=== PATIENT | male | born 1975 ===

== ENCOUNTER 2017-01-23 20:17 | Emergency (ER) | payer SELFPAY ==
--- NOTE | 2017-01-23 20:28 | PDOC ---
Rapid Medical Evaluation Chief Complaint: Alcohol intoxication Time Seen by Provider: 01/23/17 20:27 Medical Evaluation: Allergies Allergy/AdvReac Type Severity Reaction Status Date / Time No Known Allergies Allergy Verified 01/23/17 20:27 01/23/17 20:27 I have performed a brief in-person evaluation of this patient. The patient presents with a chief complaint of: biba req for detox Pertinent physical exam findings:VSS L/S CTAB RRR I have ordered the followin The patient will proceed to the ED for further evaluation:
[2017-01-23 20:30] VITALS: TEMP 98.1; BMI 38.4
--- NOTE | 2017-01-23 21:00 | PDOC ---
History of Present Illness - General Chief Complaint: Alcohol intoxication Stated Complaint: INTOXICATION Time Seen by Provider: 01/23/17 20:27 - History of Present Illness Initial Comments: 41 year old homeless male with history of EtOH abuse, diabetes, and HTN presenting acutely intoxicated but pleasant and not agitated for detox needs. Denies any other symptoms such as fevers, chills, nausea, vomiting, diarrhea, constipation, falls, chest pain, sob, or other symptoms. His last drink was one hour prior to presentation. He admits to having 8 25 ounce beers/ four lokos today. He has had withdrawal symptoms in the past but currently is not experiencing any. 01/23/17 20:56 Past History - Past Medical History Allergies/Adverse Reactions: Allergies Allergy/AdvReac Type Severity Reaction Status Date / Time No Known Allergies Allergy Verified 01/23/17 20:27 Home Medications: Ambulatory Orders NK [No Known Home Medication] 01/23/17 COPD: No Diabetes: Yes (no meds in a long time) Other medical history: hep C - Suicide/Smoking/Psychosocial Hx Smoking History: Current some day smoker Information on smoking cessation initiated: No Review of Systems - Review of Systems Constitutional: No: Chills, Diaphoresis, Fever HEENTM: No: Blurred Vision Respiratory: No: Cough, Shortness of Breath, Wheezing Cardiac (ROS): No: Palpitations, Syncope, Chest Tightness ABD/GI: No: Constipated, Diarrhea, Nausea, Vomiting : No: Dysuria, Discharge, Pain Musculoskeletal: No: Back Pain Integumentary: No: Lesions, Lumps Neurological: No: Headache Psychiatric: Yes: Depression *Physical Exam - Vital Signs Last Vital Signs Temp Pulse Resp BP Pulse Ox 98.1 F 126 H 18 151/75 98 01/23/17 20:27 01/23/17 20:27 01/23/17 20:27 01/23/17 20:27 01/23/17 20:27 - Physical Exam General Appearance: Yes: Nourished, Disheveled, Other (Malodorous). No: Apparent Distress HEENT: positive: EOMI, ANSELMO, Normal Voice. negative: Normal ENT Inspection ( Malodorous breath and smells of beer) Neck: positive: Trachea midline. negative: Tender Respiratory/Chest: positive: Lungs Clear, Normal Breath Sounds. negative: Chest Tender, Respiratory Distress Cardiovascular: positive: Regular Rhythm, Tachycardia (Slightly tachycardic) Gastrointestinal/Abdominal: positive: Normal Bowel Sounds, Flat, Soft. negative : Tender Musculoskeletal: positive: Normal Inspection Integumentary: positive: Normal Color, Dry, Warm Neurologic: positive: Fully Oriented, Alert, Normal Mood/Affect, Other ( Actively intoxicated but overall stable gait) ED Treatment Course - LABORATORY CBC & Chemistry Diagram: 01/23/17 22:50 Medical Decision Making - Medical Decision Making 41 year old actively intoxicated male. No active signs of withdrawal but slightlyl tachy to 110s. Will give one liter, measuring etoh level, cmp, then send to detox if he remains stable. 01/23/17 21:48 HR remeasured at 90s after 2 L water PO. CMP demonstrating transaminitis likely secondary to EtOH abuse but denies abdominal pain, nausea, vomiting, or diarrhea. EtOH level 200. Will send to detox. 01/24/17 03:11 *DC/Admit/Observation/Transfer Diagnosis at time of Disposition: Alcohol abuse - Discharge Dispostion Disposition: HOME Condition at time of disposition: Improved Admit: No - Referrals - Patient Instructions Printed Discharge Instructions: DI for Alcohol Abuse Additional Instructions: Your liver enzymes were a little bit high because of your alcohol abuse. Please refrain from using alcohol and stick with your detox program. - Post Discharge Activity
[2017-01-23] MEDS ORDERED: HEMOQUE TEST 1 EACH EACH ONE (21:46)
[2017-01-23] MEDS: SODIUM CHLORIDE 0.9% 1000 ML INFUS.BAG IV ONE ×2 (22:25→23:40)
[2017-01-23 23:32] LABS: ALBUMIN 2.7 g/dl (3.4-5.0); ALK PHOS 176 U/L (45-117); ANION GAP 10 (8-16); BILIRUBIN,TOTAL 0.9 mg/dL (0.2-1.0); CALCIUM 7.6 mg/dL (8.5-10.1); CO2 26 mmol/L (21-32); CREATININE 0.5 mg/dL (0.7-1.3); GLUCOSE,RANDOM 152 mg/dL (74-106); SGPT/ALT 126 U/L (12-78); TOT PROT 7.3 g/dl (6.4-8.2)
[2017-01-23 23:40] LABS: SGOT/AST 161 U/L (15-37)
[2017-01-24 01:16] VITALS: BP 142/68
--- NOTE | 2017-01-24 01:25 | PDOC ---
Attending Attestation - Resident Resident Name: Kenn Khalil - ED Attending Attestation I have performed the following: I have examined & evaluated the patient, The case was reviewed & discussed with the resident, I agree w/resident's findings & plan - HPI HPI: 01/24/17 01:23 Pt comes with alcohol intox. He is requesting detox. - Physicial Exam PE: 01/24/17 01:24 Agree with resident exam. - Medical Decision Making 01/24/17 01:24 Pt has an alcohol level of 200. He was tachycardic on arrival, and presumably dehydrated so we hydrated him with 1L NSS> Labs show elevated LFTs secondary to alcohol. No old labs for comparison. Pt will be sent to detox.
[2017-01-24 01:30] VITALS: PULSE 98
== END 2017-01-24 01:30 | disposition home or self-care (01) ==
LOC: JER 20:17
DX: F10.10 Alcohol abuse, uncomplicated (principal); I10 Essential (primary) hypertension; E11.9 Type 2 diabetes mellitus without complications; Z59.0 Homelessness
CPT/HCPCS: 36415; 80053; 80307; 99283-25

== ENCOUNTER 2017-01-24 02:08 | Inpatient (IN) | payer OTHER ==
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
[2017-01-24 04:29] VITALS: BMI 38.4
[2017-01-24] MEDS ORDERED: MAGNESIUM CITRATE 300 ML BOTTLE PO PRN (04:30)
[2017-01-24] MEDS ORDERED: NICOTINE POLACRILEX 2 MG GUM BC PRN (04:30)
[2017-01-24] MEDS ORDERED: guaiFENesin/D-METHORPHAN HB 10 ML UNIT-DOSE CUPS PO PRN (04:30)
[2017-01-24] MEDS ORDERED: P-EPHED 60MG/TRIPROLIDI 2.5MG TABLET PO PRN (04:30)
[2017-01-24] MEDS ORDERED: MAGNESIUM HYDROX 2400MG/30ML ORAL SUSPENSION 30 ML CUP PO PRN (04:30)
[2017-01-24] MEDS ORDERED: hydrOXYzine PAMOATE 50 MG CAPSULE (FP) PO PRN (04:30)
[2017-01-24] MEDS ORDERED: IBUPROFEN 400 MG TABLET (FP) PO PRN (04:30)
[2017-01-24] MEDS ORDERED: ACETAMINOPHEN 325 MG TABLET (FP) PO PRN (04:30)
[2017-01-24] MEDS ORDERED: chlordiazePOXIDE HCL 25 MG CAPSULE PO ONE (04:30)
[2017-01-24] MEDS ORDERED: MAG HYDROX/AL HYDROX/SIMETH 30 ML UNIT-DOSE CUP PO PRN (04:30)
[2017-01-24] MEDS ORDERED: MENTHOL/PHENOL 1 EACH UD MM PRN (04:30)
[2017-01-24] MEDS ORDERED: LOPERAMIDE HCL 2 MG CAPSULE PO PRN (04:30)
[2017-01-24] MEDS: chlordiazePOXIDE HCL 25 MG CAPSULE PO SCH ×4 (05:27→22:20)
[2017-01-24 09:57] LABS: MCH 31.2 pg (25.7-33.7); MEAN PLT VOLUME 8.6 fl (7.5-11.1); PLATELET COUNT 188 K/MM3 (134-434); RDW 14.9 % (11.9-15.9)
[2017-01-24] MEDS: PRENATAL VITAMINS W/ FOLIC ACID TABLET (FP) PO SCH (10:17)
[2017-01-24] MEDS: NICOTINE 14 MG/24 HOURS TOPICAL PATCH TD SCH (10:17)
[2017-01-24 10:29] LABS: ALBUMIN 2.8 g/dl (3.4-5.0); ANION GAP 11 (8-16); CALCIUM 7.7 mg/dL (8.5-10.1); CO2 25 mmol/L (21-32); CREATININE 0.5 mg/dL (0.7-1.3); GLUCOSE,RANDOM 148 mg/dL (74-106); SGOT/AST 169 U/L (15-37); SGPT/ALT 129 U/L (12-78)
[2017-01-24 10:31] LABS: ALK PHOS 159 U/L (45-117); BILIRUBIN,TOTAL 1.5 mg/dL (0.2-1.0); TOT PROT 7.4 g/dl (6.4-8.2)
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
[2017-01-24] MEDS ORDERED: PNEUMOC 13-VAL CONJ-DIP CRM/PF 0.5 ML DISP.SYRIN IM ONE (12:00)
[2017-01-24] MEDS ORDERED: FLU VACCINE QUAD 60 MCG/0.5 ML (MDV 17-18) IM ONE (12:00)
[2017-01-24] MEDS ORDERED: PNEUMOCOCCAL 23 VACCINE 0.5 ML VIAL IM ONE (12:00)
--- NOTE | 2017-01-24 14:05 | PN ---
[facility] CIWA - CIWA Score Nausea/Vomitin-No Nausea/No Vomiting Muscle Tremors: 3 Anxiety: 4-Mod. Anxious/Guarded Agitation: 2 Paroxysmal Sweats: 3 Orientation: 2-Disoriented Date<2 days Tacttile Disturbances: 2-Mild Itch/Numbness/Burn Auditory Disturbances: 2-Mild Harshness/Frighten Visual Disturbances: 1-Very Mild Sensitivity Headache: 0-None Present CIWA-Ar Total Score: 19 [facility] Progress Note (SOAP) Subjective: Sweating, Chills, Interrupted Sleep, Body Aches, Constipation, Stomach Cramping. Objective: PT. A & O X 2 (UNCERTAIN ABOUT DAY / DATE). PT. OBSERVED AMBULATING ON UNIT. NO ACUTE DISTRESS. 01/24/17 14:01 Vital Signs Temperature 96.8 F L 01/24/17 10:00 Pulse Rate 106 H 01/24/17 10:00 Respiratory Rate 20 01/24/17 10:00 Blood Pressure 132/82 01/24/17 10:00 O2 Sat by Pulse Oximetry (%) Laboratory Tests 01/24/17 01/24/17 01/24/17 05:26 07:45 07:45 WBC 8.0 RBC 4.00 Hgb 12.5 Hct 36.8 MCV 92.0 MCH 31.2 MCHC 34.0 RDW 14.9 Plt Count 188 MPV 8.6 Manual Slide Review No Result Required. Sodium 135 L Potassium 3.5 Chloride 99 Carbon Dioxide 25 Anion Gap 11 BUN 3 L Creatinine 0.5 L Creat Clearance w eGFR > 60 POC Glucometer 163 Random Glucose 148 H Calcium 7.7 L Total Bilirubin 1.5 H D AST 169 H ALT 129 H Alkaline Phosphatase 159 H Total Protein 7.4 Albumin 2.8 L RPR Titer 01/24/17 07:45 WBC RBC Hgb Hct MCV MCH MCHC RDW Plt Count MPV Manual Slide Review Sodium Potassium Chloride Carbon Dioxide Anion Gap BUN Creatinine Creat Clearance w eGFR POC Glucometer Random Glucose Calcium Total Bilirubin AST ALT Alkaline Phosphatase Total Protein Albumin RPR Titer Nonreactive LABS NOTED. UA RESULTS PENDING. 01/24/17 14:05 Assessment: 01/24/17 14:03 WITHDRAWAL SYMPTOMS. Plan: CONTINUE DETOX. PRN FLEXERIL FOR BODY ACHES / MUSCL SPASMS. PRN CLONIDINE, 0.1 MG PO FOR DETOX SYMPTOMS / ELEVATED BP. INCREASE DAILY PO FLUID INTAKE. REPEAT CMP ON 01/26/2017 FOR ABNORMAL ADMISSION RENAL LAB VALUES AND ABNORMAL HEPATIC LAB VALUES.
[2017-01-24] MEDS ORDERED: cloNIDine HCL 0.1 MG TABLET PO PRN (14:09)
[2017-01-24 20:03] LABS: URINE APPEARANCE CLEAR; URINE BILIRUBIN NEGATIVE (NEGATIVE); URINE BLOOD NEGATIVE (NEGATIVE); URINE COLOR YELLOW; URINE GLUCOSE (UA) NEGATIVE (NEGATIVE); URINE KETONE NEGATIVE (NEGATIVE); URINE NITRITE NEGATIVE (NEGATIVE); URINE PROTEIN NEGATIVE (NEGATIVE); URINE UROBILINOGEN 4.0 E.U/dl mg/dL (0.2-1.0)
[2017-01-24 21:39] LABS: URINE LEUK ESTERASE Negative (NEGATIVE)
[2017-01-24] MEDS: THIAMINE HCL 100 MG TABLET (FP) PO SCH (22:20)
[2017-01-25] MEDS: CYCLOBENZAPRINE HCL 10 MG TABLET (FP) PO PRN (05:28)
[2017-01-25] MEDS: chlordiazePOXIDE HCL 25 MG CAPSULE PO SCH ×4 (05:28→22:10)
[2017-01-25] MEDS: PRENATAL VITAMINS W/ FOLIC ACID TABLET (FP) PO SCH (10:11)
[2017-01-25] MEDS: NICOTINE 14 MG/24 HOURS TOPICAL PATCH TD SCH (10:11)
[2017-01-25] MEDS ORDERED: hydrOXYzine PAMOATE 50 MG CAPSULE (FP) PO PRN (12:33)
--- NOTE | 2017-01-25 14:15 | PN ---
[facility] CIWA - CIWA Score Nausea/Vomitin Muscle Tremors: 5 Anxiety: 3 Agitation: 3 Paroxysmal Sweats: 3 Orientation: 0-Oriented Tacttile Disturbances: 1-Very Mild Itch/Numbness Auditory Disturbances: 0-None Visual Disturbances: 0-None Headache: 1-Very Mild CIWA-Ar Total Score: 18 [facility] Progress Note (SOAP) Subjective: Tremor, stomach ache, diarrhea, interrupted sleep, anxious Objective: 01/25/17 14:13 Last Vital Signs Temp Pulse Resp BP Pulse Ox 96.4 F L 115 H 20 120/85 01/25/17 14:01 01/25/17 14:01 01/25/17 14:01 01/25/17 14:01 Laboratory Tests 01/24/17 01/24/17 01/24/17 05:26 07:45 07:45 WBC 8.0 RBC 4.00 Hgb 12.5 Hct 36.8 MCV 92.0 MCH 31.2 MCHC 34.0 RDW 14.9 Plt Count 188 MPV 8.6 Manual Slide Review No Result Required. Sodium 135 L Potassium 3.5 Chloride 99 Carbon Dioxide 25 Anion Gap 11 BUN 3 L Creatinine 0.5 L Creat Clearance w eGFR > 60 POC Glucometer 163 Random Glucose 148 H Calcium 7.7 L Total Bilirubin 1.5 H D AST 169 H ALT 129 H Alkaline Phosphatase 159 H Total Protein 7.4 Albumin 2.8 L Urine Color Urine Appearance Urine pH Ur Specific [place] Urine Protein Urine Glucose (UA) Urine Ketones Urine Blood Urine Nitrite Urine Bilirubin Urine Urobilinogen Ur Leukocyte Esterase RPR Titer 01/24/17 01/24/17 01/25/17 07:45 08:30 05:34 WBC RBC Hgb Hct MCV MCH MCHC RDW Plt Count MPV Manual Slide Review Sodium Potassium Chloride Carbon Dioxide Anion Gap BUN Creatinine Creat Clearance w eGFR POC Glucometer 130 Random Glucose Calcium Total Bilirubin AST ALT Alkaline Phosphatase Total Protein Albumin Urine Color Yellow Urine Appearance Clear Urine pH 8.0 Ur Specific [place] 1.011 Urine Protein Negative Urine Glucose (UA) Negative Urine Ketones Negative Urine Blood Negative Urine Nitrite Negative Urine Bilirubin Negative Urine Urobilinogen 4.0 e.u/dl Ur Leukocyte Esterase Negative RPR Titer Nonreactive Labs noted: Ca 7.7 Assessment: 01/25/17 14:13 Withdrawal symptoms Noted with hypocalcemia Plan: Continue detox Vistaril 50mg PO q6hr prn for anxiety Hypocalcemia: start Os-anai 500mg PO BID, CMP already ordered for 01/26/17 ( follow up on result)
[2017-01-25] MEDS: CALCIUM (OYSTER SHELL) 500 MG TABLET (FP) PO SCH ×2 (14:37→22:11)
[2017-01-25] MEDS: chlordiazePOXIDE HCL 25 MG CAPSULE PO PRN (14:38)
[2017-01-25] MEDS: ZOLPIDEM TARTRATE 5 MG TABLET PO PRN (22:10)
[2017-01-25] MEDS: THIAMINE HCL 100 MG TABLET (FP) PO SCH (22:10)
[2017-01-26] MEDS: chlordiazePOXIDE 5 MG CAPSULE PO SCH ×4 (05:55→22:15)
[2017-01-26] MEDS: PRENATAL VITAMINS W/ FOLIC ACID TABLET (FP) PO SCH (10:04)
[2017-01-26] MEDS: CALCIUM (OYSTER SHELL) 500 MG TABLET (FP) PO SCH ×2 (10:04→22:14)
[2017-01-26] MEDS: NICOTINE 14 MG/24 HOURS TOPICAL PATCH TD SCH (10:05)
[2017-01-26 10:19] LABS: ALBUMIN 2.6 g/dl (3.4-5.0); ALK PHOS 209 U/L (45-117); ANION GAP 7 (8-16); BILIRUBIN,TOTAL 0.8 mg/dL (0.2-1.0); CO2 26 mmol/L (21-32); CREATININE 0.6 mg/dL (0.7-1.3); GLUCOSE,RANDOM 160 mg/dL (74-106); SGOT/AST 136 U/L (15-37); SGPT/ALT 106 U/L (12-78)
--- NOTE | 2017-01-26 10:56 | PN ---
[facility] Progress Note (SOAP) Subjective: Diarrhea, Stomach Cramping, Sweating, Body Aches, Tremors. Objective: PT. A & O X 3, OBSERVED AMBULATING ON UNIT. NO ACUTE DISTRESS. 01/26/17 10:54 Vital Signs Temperature 95.8 F L 01/26/17 09:06 Pulse Rate 92 H 01/26/17 09:06 Respiratory Rate 18 01/26/17 09:06 Blood Pressure 138/87 01/26/17 09:06 O2 Sat by Pulse Oximetry (%) Laboratory Tests 01/24/17 01/24/17 01/24/17 05:26 07:45 07:45 WBC 8.0 RBC 4.00 Hgb 12.5 Hct 36.8 MCV 92.0 MCH 31.2 MCHC 34.0 RDW 14.9 Plt Count 188 MPV 8.6 Manual Slide Review No Result Required. Sodium 135 L Potassium 3.5 Chloride 99 Carbon Dioxide 25 Anion Gap 11 BUN 3 L Creatinine 0.5 L Creat Clearance w eGFR > 60 POC Glucometer 163 Random Glucose 148 H Calcium 7.7 L Total Bilirubin 1.5 H D AST 169 H ALT 129 H Alkaline Phosphatase 159 H Total Protein 7.4 Albumin 2.8 L Urine Color Urine Appearance Urine pH Ur Specific [place] Urine Protein Urine Glucose (UA) Urine Ketones Urine Blood Urine Nitrite Urine Bilirubin Urine Urobilinogen Ur Leukocyte Esterase RPR Titer 01/24/17 01/24/17 01/25/17 07:45 08:30 05:34 WBC RBC Hgb Hct MCV MCH MCHC RDW Plt Count MPV Manual Slide Review Sodium Potassium Chloride Carbon Dioxide Anion Gap BUN Creatinine Creat Clearance w eGFR POC Glucometer 130 Random Glucose Calcium Total Bilirubin AST ALT Alkaline Phosphatase Total Protein Albumin Urine Color Yellow Urine Appearance Clear Urine pH 8.0 Ur Specific [place] 1.011 Urine Protein Negative Urine Glucose (UA) Negative Urine Ketones Negative Urine Blood Negative Urine Nitrite Negative Urine Bilirubin Negative Urine Urobilinogen 4.0 e.u/dl Ur Leukocyte Esterase Negative RPR Titer Nonreactive 01/26/17 01/26/17 05:58 07:00 WBC RBC Hgb Hct MCV MCH MCHC RDW Plt Count MPV Manual Slide Review Sodium 137 Potassium 3.7 Chloride 104 Carbon Dioxide 26 Anion Gap 7 L BUN 8 D Creatinine 0.6 L Creat Clearance w eGFR > 60 POC Glucometer 137 Random Glucose 160 H Calcium 8.0 L Total Bilirubin 0.8 D AST 136 H ALT 106 H Alkaline Phosphatase 209 H D Total Protein 7.0 Albumin 2.6 L Urine Color Urine Appearance Urine pH Ur Specific [place] Urine Protein Urine Glucose (UA) Urine Ketones Urine Blood Urine Nitrite Urine Bilirubin Urine Urobilinogen Ur Leukocyte Esterase RPR Titer LABS NOTED. RESULTS OF REPEAT CMP NOTED. 01/26/17 10:56 Assessment: 01/26/17 10:54 WITHDRAWAL SYMPTOMS. Plan: CONTINUE DETOX. INCREASE DAILY PO FLUID INTAKE. ENCOURAGE AMBULATION.
[2017-01-26] MEDS: chlordiazePOXIDE HCL 25 MG CAPSULE PO PRN (15:31)
[2017-01-26] MEDS: THIAMINE HCL 100 MG TABLET (FP) PO SCH (22:14)
[2017-01-26] MEDS: ZOLPIDEM TARTRATE 5 MG TABLET PO PRN (22:14)
--- NOTE | 2017-01-27 01:03 | EKG ---
Test Reason : Blood Pressure : / mmHG Vent. Rate : 105 BPM Atrial Rate : 105 BPM P-R Int : 132 ms QRS Dur : 092 ms QT Int : 378 ms P-R-T Axes : 054 061 050 degrees QTc Int : 499 ms SINUS TACHYCARDIA OTHERWISE NORMAL ECG WHEN COMPARED WITH ECG OF 24-JAN-2017 07:28, NO SIGNIFICANT CHANGE WAS FOUND Confirmed by DARVIN KULKARNI MD ([id number]) on 01/27/2017 1:03:30 AM Referred By: Confirmed By:DARVIN KULKARNI MD
--- NOTE | 2017-01-27 01:03 | EKG ---
Test Reason : Blood Pressure : / mmHG Vent. Rate : 097 BPM Atrial Rate : 097 BPM P-R Int : 130 ms QRS Dur : 090 ms QT Int : 380 ms P-R-T Axes : 052 048 043 degrees QTc Int : 482 ms NORMAL SINUS RHYTHM PROLONGED QT ABNORMAL ECG NO PREVIOUS ECGS AVAILABLE Confirmed by DARVIN KULKARNI MD ([id number]) on 01/27/2017 1:03:37 AM Referred By: Confirmed By:DARVIN KULKARNI MD
[2017-01-27] MEDS: chlordiazePOXIDE HCL 10 MG CAPSULE PO SCH ×4 (05:52→22:04)
[2017-01-27] MEDS: NICOTINE 14 MG/24 HOURS TOPICAL PATCH TD SCH (10:18)
[2017-01-27] MEDS: PRENATAL VITAMINS W/ FOLIC ACID TABLET (FP) PO SCH (10:18)
[2017-01-27] MEDS: CALCIUM (OYSTER SHELL) 500 MG TABLET (FP) PO SCH ×2 (10:19→22:04)
--- NOTE | 2017-01-27 11:19 | PN ---
S Progress Note (SOAP) Subjective: Tremors, Anxious, Fatigue, Sweating, Diarrhea, Body Aches. Objective: PT. A & O X 2 (UNCERTAIN ABOUT DAY / DATE). NO ACUTE DISTRESS. 01/27/17 11:15 Vital Signs Temperature 97.2 F L 01/27/17 09:14 Pulse Rate 86 01/27/17 09:14 Respiratory Rate 18 01/27/17 09:14 Blood Pressure 149/83 01/27/17 09:14 O2 Sat by Pulse Oximetry (%) Laboratory Tests 01/24/17 01/24/17 01/24/17 05:26 07:45 07:45 WBC 8.0 RBC 4.00 Hgb 12.5 Hct 36.8 MCV 92.0 MCH 31.2 MCHC 34.0 RDW 14.9 Plt Count 188 MPV 8.6 Manual Slide Review No Result Required. Sodium 135 L Potassium 3.5 Chloride 99 Carbon Dioxide 25 Anion Gap 11 BUN 3 L Creatinine 0.5 L Creat Clearance w eGFR > 60 POC Glucometer 163 Random Glucose 148 H Calcium 7.7 L Total Bilirubin 1.5 H D AST 169 H ALT 129 H Alkaline Phosphatase 159 H Total Protein 7.4 Albumin 2.8 L Urine Color Urine Appearance Urine pH Ur Specific [place] Urine Protein Urine Glucose (UA) Urine Ketones Urine Blood Urine Nitrite Urine Bilirubin Urine Urobilinogen Ur Leukocyte Esterase RPR Titer 01/24/17 01/24/17 01/25/17 07:45 08:30 05:34 WBC RBC Hgb Hct MCV MCH MCHC RDW Plt Count MPV Manual Slide Review Sodium Potassium Chloride Carbon Dioxide Anion Gap BUN Creatinine Creat Clearance w eGFR POC Glucometer 130 Random Glucose Calcium Total Bilirubin AST ALT Alkaline Phosphatase Total Protein Albumin Urine Color Yellow Urine Appearance Clear Urine pH 8.0 Ur Specific [place] 1.011 Urine Protein Negative Urine Glucose (UA) Negative Urine Ketones Negative Urine Blood Negative Urine Nitrite Negative Urine Bilirubin Negative Urine Urobilinogen 4.0 e.u/dl Ur Leukocyte Esterase Negative RPR Titer Nonreactive 01/26/17 01/26/17 01/26/17 05:58 07:00 16:22 WBC RBC Hgb Hct MCV MCH MCHC RDW Plt Count MPV Manual Slide Review Sodium 137 Potassium 3.7 Chloride 104 Carbon Dioxide 26 Anion Gap 7 L BUN 8 D Creatinine 0.6 L Creat Clearance w eGFR > 60 POC Glucometer 137 131 Random Glucose 160 H Calcium 8.0 L Total Bilirubin 0.8 D AST 136 H ALT 106 H Alkaline Phosphatase 209 H D Total Protein 7.0 Albumin 2.6 L Urine Color Urine Appearance Urine pH Ur Specific [place] Urine Protein Urine Glucose (UA) Urine Ketones Urine Blood Urine Nitrite Urine Bilirubin Urine Urobilinogen Ur Leukocyte Esterase RPR Titer 01/27/17 05:51 WBC RBC Hgb Hct MCV MCH MCHC RDW Plt Count MPV Manual Slide Review Sodium Potassium Chloride Carbon Dioxide Anion Gap BUN Creatinine Creat Clearance w eGFR POC Glucometer 151 Random Glucose Calcium Total Bilirubin AST ALT Alkaline Phosphatase Total Protein Albumin Urine Color Urine Appearance Urine pH Ur Specific [place] Urine Protein Urine Glucose (UA) Urine Ketones Urine Blood Urine Nitrite Urine Bilirubin Urine Urobilinogen Ur Leukocyte Esterase RPR Titer LABS NOTED. Assessment: 01/27/17 11:15 WITHDRAWAL SYMPTOMS. HYPERGLYCEMIA. 01/27/17 11:18 Plan: CONTINUE DETOX. INCREASE DAILY PO FLUID INTAKE. PATIENT ADVISED TO FOLLOW-UP WITH [facility] DR. AVELAR ([place] AFTER DISCHARGE FROM DETOX FOR GENERAL MEDICAL ASSESSMENT AND FOR HISTORY OF DM AND FOR ELEVATED RANDOM GLUCOSE LEVEL , ELEVATED BGM'S, AND FOR ELEVATED LIVER ENZYME LEVELS WHILE ADMITTED FOR DETOX.
[2017-01-27] MEDS: THIAMINE HCL 100 MG TABLET (FP) PO SCH (22:04)
[2017-01-27] MEDS: ZOLPIDEM TARTRATE 5 MG TABLET PO PRN (23:31)
[2017-01-28] MEDS: CYCLOBENZAPRINE HCL 10 MG TABLET (FP) PO PRN (05:39)
[2017-01-28 06:04] VITALS: BP 118/69; PULSE 81; TEMP 96.9
== END 2017-01-28 09:43 | disposition home or self-care (01) | DRG 775 ==
LOC: YASAS 02:08 → Y3N 04:45
PROVIDERS: ADMIT Internal Medicine; ATTEND Internal Medicine
PROC: HZ2ZZZZ Detoxification Services for Substance Abuse Treatment (ICD-10-PCS; principal; 2017-01-24)
DX: F10.230 Alcohol dependence with withdrawal, uncomplicated (principal); F12.20 Cannabis dependence, uncomplicated; F17.210 Nicotine dependence, cigarettes, uncomplicated; G47.00 Insomnia, unspecified; R73.9 Hyperglycemia, unspecified; B18.2 Chronic viral hepatitis C; E83.51 Hypocalcemia; R00.1 Bradycardia, unspecified; Z86.39 Personal history of other endocrine, nutritional and metabolic disease; Z59.0 Homelessness
CPT/HCPCS: 36415; 80053; 81003; 85027; 86593; 93005; 93010